=== PATIENT | male | born 1935 | race Caucasian/White ===

== ENCOUNTER 2018-08-30 13:50 | Observation (INO) | payer MEDICARE ==
[~2018-08-30] VITALS: Ht 190.5 cm; Wt 110.5 kg
[~2018-08-30 13:50] MED LIST: BAYER CHEWABLE81 MG PO; BETAPACE 80 MG80 MG PO; BETAPACE160 MG PO; COZAAR50 MG PO; HUMULIN 70100 UNIT/1 SC; HYDROCHLOROTH12.5 M1 PO; KLOR-CON 1010 MEQ PO; LEVAQUIN750 MG PO; SYNTHROID150 MCG PO; TESSALON PERLE100 MG PO; TUMS500 MG PO
[2018-08-30 14:44] LABS: BASOPHILS 0.2 % (0-2); EOSINOPHILS 0.8 % (0-7); HEMATOCRIT 48.1 % (42.0-54.0); HEMOGLOBIN 16.4 g/dL (13.5-17.5); IMMATURE GRANULOCYTES 0.4 % (0-5); LYMPHOCYTES 16.5 % (15-50); MCHC 34.1 g/dL (31.0-37.0); MCV 88.1 fL (80.0-100.0); MEAN PLATELET VOLUME 11.4 fL (7.4-10.4); MONOCYTES 7.9 % (2-11); NEUTROPHILS 74.2 % (40-80); RBC 5.46 10x6/uL (4.20-6.10); RDW 13.2 % (11.5-14.5)
[2018-08-30 14:52] LABS: PLATELET COUNT 171 10x3/uL (130-400)
[2018-08-30 15:06] LABS: ALBUMIN 2.9 g/dL (3.4-5.0); ALKALINE PHOSPHATASE 58 U/L (46-116); ALT (SGPT) 18 U/L (10-68); BILIRUBIN - TOTAL 0.44 mg/dL (0.2-1.3); CALC OSMOLALITY 274 mosm/kg (275-300); CALCIUM 9.2 mg/dL (8.5-10.1); CHLORIDE - SERUM 101 mmol/L (98-107); GLUCOSE 120 mg/dL (74-106); POTASSIUM - SERUM 3.9 mmol/L (3.5-5.1); PROTEIN - SERUM 7.1 g/dL (6.4-8.2); SODIUM 135 mmol/L (136-145); UREA NITROGEN 23 mg/dL (7-18); eGFR NON AFRICAN AMERICAN 76 mL/min (90-120)
[2018-08-30 15:17] LABS: CKMB 1.7 U/L (0.0-3.6); CREATINE KINASE 39 UL (21-232); TROPONIN-I < 0.017 ng/mL (0.000-0.060)
[2018-08-30] MEDS ORDERED: BAYER CHEWABLE81 MG PO (17:36)
[2018-08-30] MEDS ORDERED: COZAAR50 MG PO (17:38)
[2018-08-30] MEDS ORDERED: HYDROCHLOROTH12.5 M1 PO (17:38)
[2018-08-30 17:45] VITALS: BP 125/63
--- NOTE | 2018-08-30 18:32 | NUR ---
LYING QUIETLY. PT DENIES ANY NEEDS. TELEMERTY SHOWS [id number]
[2018-08-30 18:38] VITALS: BMI 22.5
--- NOTE | 2018-08-30 19:15 | NUR ---
RECEIVED REPORT, WILL ASSUME CARE OF PT, PT ASKING ABOUT HIS INSULIN, WILL CALL , PT IS VISITNG WITH FAMILY, BED IS LOW, SRX2, CALL LIGHT IN REACH, WILL CONTINUE PLAN OF CARE
--- NOTE | 2018-08-30 19:33 | NUR ---
SPOKE WITH DR. MARCUS ABOUT BLOODSUGAR 275, WAS TOLD TO ORDER INTERMEDATE SLICING SCALE, WAS ALSO TOLD TO ORDER 70/30
[2018-08-30 20:00] VITALS: BP 100/40
[2018-08-31] VITALS (7 sets, daily range): BP systolic 107–131; BP diastolic 55–64; Ht 190.5 cm; Wt 110.5 kg
--- NOTE | 2018-08-31 03:32 | NUR ---
I have reviewed this patient and I concur with the Shift Assessment completed by the Licensed Practical Nurse today this shift.
[2018-08-31 04:43] LABS: BASOPHILS 0.2 % (0-2); EOSINOPHILS 1.3 % (0-7); HEMOGLOBIN 15.2 g/dL (13.5-17.5); IMMATURE GRANULOCYTES 0.3 % (0-5); LYMPHOCYTES 29.7 % (15-50); MCH 29.9 pg (26.0-34.0); MCHC 33.8 g/dL (31.0-37.0); MCV 88.6 fL (80.0-100.0); MEAN PLATELET VOLUME 11.9 fL (7.4-10.4); MONOCYTES 10.5 % (2-11); PLATELET COUNT 182 10x3/uL (130-400); RBC 5.08 10x6/uL (4.20-6.10); RDW 13.2 % (11.5-14.5)
[2018-08-31 04:49] LABS: WBC 8.9 10x3/uL (4.8-10.8)
[2018-08-31 05:08] LABS: CALC OSMOLALITY 281 mosm/kg (275-300); CALCIUM 8.8 mg/dL (8.5-10.1); CARBON DIOXIDE 32.3 mmol/L (21.0-32.0); CHLORIDE - SERUM 103 mmol/L (98-107); CREATININE - SERUM 0.9 mg/dL (0.6-1.3); GLUCOSE 121 mg/dL (74-106); POTASSIUM - SERUM 3.7 mmol/L (3.5-5.1); SODIUM 139 mmol/L (136-145); THYROID STIMULATING HORMONE 1.02 uIU/mL (0.36-3.74); UREA NITROGEN 22 mg/dL (7-18); eGFR NON AFRICAN AMERICAN 86 mL/min (90-120)
--- NOTE | 2018-08-31 07:00 | NUR ---
RECEIVED REPORT. ASSUMED CARE OF PATIENT. PATIENT WITH EYES OPEN. CALL LIGHT WITHIN REACH. NO DISTRESS. DENIES NEEDS. PATIENT AT BEDSIDE.
--- NOTE | 2018-08-31 08:58 | NUR ---
FSBS 100. 60 UNITS NPH ADMINISTERED ORDERED AFTER PATIENT ATE AM MEAL.
--- NOTE | 2018-08-31 09:54 | NUR ---
ORAL CARDIZEM AND XARELTO INITIATED AT THIS TIME.
--- NOTE | 2018-08-31 12:27 | NUR ---
FSBS 224. REFUSED INSULIN. PATIENT STATES HE DOESNT TAKE SLIDING SCALE INSULIN AT HOME. HAVING NOON MEAL. NO DISTRESS. IV CARDIZEM DRIP IS OFF AT THIS TIME PER ORDER FROM .
--- NOTE | 2018-08-31 16:51 | NUR ---
FSBS 210. PATIENT REFUSED SHORT ACTING INSULIN PER SLIDING SCALE AT THIS TIME.
--- NOTE | 2018-08-31 19:31 | NUR ---
RECEIVED REPORT, WILL ASSUME CARE OF PT, ASKING WHAT MEDS HE IS TAKEN, PULLED UP EMAR AND WENT OVER EACH MED, DENIES ANY OTHER NEEDS AT THIS TIME, SR-60 ON TELEMTRY, BED IS LOW, SRX2, CALL LIGHT IN REACH, AT BEDSIDE, WILL CONTINUE PLAN OF CARE
--- NOTE | 2018-09-01 02:08 | NUR ---
REQUESTING BS TO BE CHECKED-44, HE HAD EATEN A CANDY BAR, I GAVE ORANGE JUICE, WILL RECHECK
[2018-09-01 04:30] VITALS: BP 110/56
[2018-09-01 04:41] LABS: BASOPHILS 0.2 % (0-2); EOSINOPHILS 1.9 % (0-7); HEMATOCRIT 42.5 % (42.0-54.0); HEMOGLOBIN 14.2 g/dL (13.5-17.5); IMMATURE GRANULOCYTES 0.5 % (0-5); LYMPHOCYTES 20.3 % (15-50); MCH 29.8 pg (26.0-34.0); MCHC 33.4 g/dL (31.0-37.0); MCV 89.1 fL (80.0-100.0); MEAN PLATELET VOLUME 11.9 fL (7.4-10.4); NEUTROPHILS 68.1 % (40-80); PLATELET COUNT 175 10x3/uL (130-400); RBC 4.77 10x6/uL (4.20-6.10); WBC 10.1 10x3/uL (4.8-10.8)
[2018-09-01 05:07] LABS: CALC OSMOLALITY 277 mosm/kg (275-300); CALCIUM 8.7 mg/dL (8.5-10.1); CARBON DIOXIDE 31.1 mmol/L (21.0-32.0); CHLORIDE - SERUM 103 mmol/L (98-107); GLUCOSE 110 mg/dL (74-106); POTASSIUM - SERUM 3.8 mmol/L (3.5-5.1); SODIUM 137 mmol/L (136-145); UREA NITROGEN 22 mg/dL (7-18); eGFR NON AFRICAN AMERICAN 76 mL/min (90-120)
[2018-09-01 07:56] VITALS: BP 129/64
[2018-09-01] MEDS ORDERED: XARELTO15 MG PO (10:18)
[2018-09-01] MEDS ORDERED: CARDIZEM60 MG PO (10:18)
[2018-09-01] MEDS ORDERED: PROTONIX40 MG PO (10:19)
--- NOTE | 2018-09-01 11:15 | NUR ---
PT DC'D HOME. IV REMOVED FROM LEFT UPPER ARM WITH CATHETER TIP IN PLACE. DISCHARGE INSTRUCTION GIVEN. VITALS STABLE NO S/S OF DISTRESS. PT DENIES ANY NEEDS OR PAIN AT THIS TIME. BED LOW CALL LIGHT WITHIN REACH. WILL CONTINUE TO MONITOR.
--- NOTE | 2018-09-02 09:13 | MORECARE ---
CASE MANAGEMENT DISCHARGE SUMMARY PATIENT: BRADLEY JAIVER JR UNIT: [id number] ADM DATE: 08/30/18 AGE: 83 : 37 SEX: M ROOM/BED: D.[facility] AUTHOR: KAMLESH STUART PHYSICIAN: REFERRING PHYSICIAN: FRANCIS MARCUS MD DATE OF SERVICE: 09/02/18 Discharge Plan Patient Name: BRADLEY JAVIER Facility: [facility]:[place] : 1935 Planned Disposition: Home Anticipated Discharge Date: 09/01/18 Discharge Date: 09/01/2018 Expected LOS: 2 Initial Reviewer: [email or web address] Initial Review Date: 09/02/2018 Generated: 09/02/18 10:13 am Coverage Notice Reviewer: [email or web address] Andres Jeffries Notice Issued Date-Time: 08/31/2018 12:01 Notice Type: Medicare Outpatient Observation Notice Notice Delivered To: Patient Relationship to 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
== END 2018-09-01 12:37 | disposition home or self-care (01) ==
LOC: D.ER 13:50 → D.M2 15:52 → D.EDHOLD 15:52 → OBSVTIME 15:53 → D.M2 15:55
PROVIDERS: Family Medicine; ADMIT Internal Medicine Nephrology; ATTEND Internal Medicine Nephrology
DX: I48.0 Paroxysmal atrial fibrillation (principal); E11.9 Type 2 diabetes mellitus without complications; I10 Essential (primary) hypertension; J44.9 Chronic obstructive pulmonary disease, unspecified; N17.9 Acute kidney failure, unspecified; E87.1 Hypo-osmolality and hyponatremia; E03.9 Hypothyroidism, unspecified

== ENCOUNTER → 2019-04-29 08:55 | Outpatient (CLI) | payer MEDICARE ==
[2018-08-31 11:13] VITALS: BMI 22.5
[~2019-04-29 08:55] MED LIST changes: +CARDIZEM60 MG PO; +PROTONIX40 MG PO; +XARELTO15 MG PO
== END | disposition home or self-care (01) ==
LOC: D.HCCECHO 08:55
PROVIDERS: ATTEND Internal Medicine Cardiovascular Disease
DX: I10 Essential (primary) hypertension (principal)

== ENCOUNTER 2019-09-11 13:25 | Inpatient (IN) | payer MEDICARE ==
[~2019-09-11] VITALS: Ht 190.5 cm; Wt 111.1 kg
[2019-09-11 13:54] VITALS: BP 187/85
[2019-09-11 14:01] LABS: BASOPHILS 0.2 % (0-2); EOSINOPHILS 0.8 % (0-7); HEMATOCRIT 50.1 % (42.0-54.0); HEMOGLOBIN 16.5 g/dL (13.5-17.5); IMMATURE GRANULOCYTES 0.5 % (0-5); MCH 30.2 pg (26.0-34.0); MCHC 32.9 g/dL (31.0-37.0); MCV 91.6 fL (80.0-100.0); MEAN PLATELET VOLUME 10.6 fL (7.4-10.4); MONOCYTES 7.1 % (2-11); NEUTROPHILS 77.4 % (40-80); RBC 5.47 10x6/uL (4.20-6.10); RDW 13.6 % (11.5-14.5); WBC 15.6 10x3/uL (4.8-10.8)
[2019-09-11 14:02] LABS: CALC OSMOLALITY 251 mosm/kg (275-300); CALCIUM 9.8 mg/dL (8.5-10.1); CARBON DIOXIDE 36.5 mmol/L (21.0-32.0); CHLORIDE - SERUM 90 mmol/L (98-107); CREATININE - SERUM 0.9 mg/dL (0.6-1.3); POTASSIUM - SERUM 4.4 mmol/L (3.5-5.1); SODIUM 125 mmol/L (136-145); UREA NITROGEN 19 mg/dL (7-18); eGFR NON AFRICAN AMERICAN 86 mL/min (90-120)
[2019-09-11 14:04] LABS: GLUCOSE 60 mg/dL (74-106)
[2019-09-11 14:06] LABS: APTT 54.7 SECONDS (22.8-39.4); PROTIME 20.7 SECONDS (11.6-15.0)
[2019-09-11 14:07] LABS: D-DIMER-QUANTITATIVE < 0.27 ug/mLFEU (0.20-0.54); PLATELET COUNT 212 10x3/uL (130-400)
[2019-09-11 14:20] LABS: ALBUMIN 3.2 g/dL (3.4-5.0); ALKALINE PHOSPHATASE 85 U/L (30-120); ALT (SGPT) 13 U/L (10-68); BILIRUBIN - TOTAL 0.69 mg/dL (0.2-1.3); CKMB 3.7 U/L (0.0-3.6); CREATINE KINASE 52 UL (21-232); MAGNESIUM - SERUM 1.9 mg/dL (1.8-2.4); PRO BNP 361 pg/mL (0-450); PROTEIN - SERUM 8.6 g/dL (6.4-8.2); TROPONIN-I < 0.017 ng/mL (0.000-0.060)
[2019-09-11 15:02] LABS: C-REACTIVE PROTEIN 2.6 mg/dL (0.0-0.9)
--- NOTE | 2019-09-11 15:12 | NUR ---
ABG'S PERFORMED PER RT, BS= 48 MG/DL. PT A/OX3. TALKATIVE. OJ GIVEN AND PT CONSUMED WITHOUT PBMS. D50 (1/2 AMP) ADMINPER ORDERS
[2019-09-11 15:23] VITALS: BP 149/88
[2019-09-11] MEDS ORDERED: AVAPRO75 MG PO (15:29)
[2019-09-11] MEDS ORDERED: MELATONIN10 M1 PO (15:30)
[2019-09-11] MEDS ORDERED: VALTREX1000 MG PO (15:31)
--- NOTE | 2019-09-11 16:01 | NUR ---
FSBS= 109 MG/DL
--- NOTE | 2019-09-11 16:12 | NUR ---
REPORT TO EN ALVARENGA
[2019-09-11 16:30] VITALS: BP 136/84
--- NOTE | 2019-09-11 16:35 | NUR ---
ADMITTED TO ROOM # 2130, CONDITION STABLE. LEVAQUIN 750 MG INFUSING @ 100 ML/HR
--- NOTE | 2019-09-11 16:48 | NUR ---
PT TO ROOM FROM ER VIA CART. COVID PUI. ISOLATION. VITAL STABLE. LEVAQUIN INFUSING ON ARRIVAL.
[2019-09-11 16:54] VITALS: BP 149/62
[2019-09-11 19:33] VITALS: BP 149/62; BMI 30.6
[2019-09-11 19:38] LABS: BILIRUBIN NEGATIVE (NEGATIVE); GLUCOSE NEGATIVE (NEGATIVE); KETONE NEGATIVE (NEGATIVE); NITRITE NEGATIVE (NEGATIVE); UROBILINOGEN NORMAL (NORMAL)
--- NOTE | 2019-09-11 19:43 | NUR ---
[facility] WITH INFECTION CONTROL CALLED AND NOTIFIED CHARGE NURSE THAT PT IS COVID-19 NEGATIVE. PT IS TO BE MOVED TO A REGULAR ROOM.
[2019-09-11 19:47] LABS: BACTERIA FEW /hpf (NEGATIVE); EPITHELIAL CELLS NSEEN /hpf (0-5); RED CELLS - URINE 0-5 /hpf (0-5); WHITE CELLS - URINE 0-5 /hpf (NEGATIVE)
[2019-09-11 20:00] VITALS: BP 128/50
[2019-09-12] VITALS: BP 106/57
--- NOTE | 2019-09-12 03:14 | NUR ---
PT PIV TO L HAND WAS RIPPED OUT BY PT WHEN HE STOOD TO USE THE URINAL. OLD CATH TIP STILL INTACT. NEW 20G PIV STARTED X1 ATTEMPT IN R FOREARM. NS @100 ML/HR STARTED IN NEW PIV. PT TOLERATED WELL. CL IN REACH, BED IN LOWEST POSITION.
[2019-09-12 04:00] VITALS: BP 131/60
[2019-09-12 08:04] VITALS: BP 127/67; BP 130/56
[2019-09-12 09:11] LABS: BASOPHILS 0.1 % (0-2); EOSINOPHILS 0.4 % (0-7); HEMATOCRIT 45.9 % (42.0-54.0); IMMATURE GRANULOCYTES 0.4 % (0-5); LYMPHOCYTES 12.3 % (15-50); MCH 30.2 pg (26.0-34.0); MCHC 32.7 g/dL (31.0-37.0); MCV 92.5 fL (80.0-100.0); MEAN PLATELET VOLUME 10.8 fL (7.4-10.4); MONOCYTES 6.6 % (2-11); NEUTROPHILS 80.2 % (40-80); RBC 4.96 10x6/uL (4.20-6.10); RDW 13.9 % (11.5-14.5); WBC 13.7 10x3/uL (4.8-10.8)
[2019-09-12 09:29] LABS: CALC OSMOLALITY 262 mosm/kg (275-300); CALCIUM 9.1 mg/dL (8.5-10.1); CARBON DIOXIDE 38.3 mmol/L (21.0-32.0); CHLORIDE - SERUM 92 mmol/L (98-107); CREATININE - SERUM 0.9 mg/dL (0.6-1.3); MAGNESIUM - SERUM 1.8 mg/dL (1.8-2.4); PHOSPHOROUS 3.6 mg/dL (2.5-4.9); PLATELET COUNT 165 10x3/uL (130-400); POTASSIUM - SERUM 4.8 mmol/L (3.5-5.1); SODIUM 127 mmol/L (136-145); THYROID STIMULATING HORMONE 4.22 uIU/mL (0.36-3.74); UREA NITROGEN 20 mg/dL (7-18); eGFR NON AFRICAN AMERICAN 86 mL/min (90-120)
[2019-09-12 09:31] LABS: GLUCOSE 188 mg/dL (74-106)
[2019-09-12 12:49] VITALS: BP 114/69
[2019-09-12 13:20] VITALS: Ht 190.5 cm; Wt 111.1 kg
[2019-09-12 17:03] VITALS: BP 115/56
--- NOTE | 2019-09-12 19:20 | NUR ---
BEDSIDE REPORT RECEIVED, PT CARE ASSUMED. INTRODUCED SELF AND WROTE NAME ON BOARD. PT SITTING UP IN BED, WATCHING TV, AAOX4. DENIES ANY NEEDS AT THIS TIME. BED IN LOWEST, SRX2, CALL LIGHT AND URINAL WITHIN REACH. WILL CTM.
[2019-09-12 20:30] VITALS: BP 136/58
[2019-09-13 00:30] VITALS: BP 98/47
[2019-09-13 04:30] VITALS: BP 130/52
[2019-09-13 05:27] LABS: BASOPHILS 0.2 % (0-2); EOSINOPHILS 1.1 % (0-7); HEMATOCRIT 44.3 % (42.0-54.0); IMMATURE GRANULOCYTES 1.1 % (0-5); LYMPHOCYTES 11.8 % (15-50); MCH 29.8 pg (26.0-34.0); MCHC 31.6 g/dL (31.0-37.0); MCV 94.3 fL (80.0-100.0); MEAN PLATELET VOLUME 11.4 fL (7.4-10.4); NEUTROPHILS 76.8 % (40-80); RDW 13.7 % (11.5-14.5); WBC 12.7 10x3/uL (4.8-10.8)
[2019-09-13 05:49] LABS: CALCIUM 8.9 mg/dL (8.5-10.1); CARBON DIOXIDE 35.4 mmol/L (21.0-32.0); CREATININE - SERUM 1.1 mg/dL (0.6-1.3); MAGNESIUM - SERUM 1.7 mg/dL (1.8-2.4); PHOSPHOROUS 3.3 mg/dL (2.5-4.9); POTASSIUM - SERUM 5.4 mmol/L (3.5-5.1)
[2019-09-13 05:56] LABS: PLATELET COUNT 210 10x3/uL (130-400)
--- NOTE | 2019-09-13 07:30 | NUR ---
PT SITTING UP IN BED, RR EVEN AND SLIGHTLY LABORED ON 4L NC. NC WAS SITTING ON PT NOSE. REPOSITIONED TO CORRECT PLACEMENT. READJUSTED PILLOW TO COMFORT PER REQUEST. CALL LIGHT WITHIN REACH. BED IN LOWEST POSITION. WILL CONTINUE TO MONITOR.
[2019-09-13 08:29] VITALS: BP 145/59
[2019-09-13 13:56] VITALS: BP 141/59
--- NOTE | 2019-09-13 13:57 | NUR ---
I have reviewed this patient and I concur with the Shift Assessment completed by the Licensed Practical Nurse today this shift.
[2019-09-13 18:25] VITALS: BP 157/62
--- NOTE | 2019-09-13 19:00 | NUR ---
BEDSIDE REPORT RECEIVED, PT CARE ASSUMED. PT SITTING ON SIDE OF BEDSIDE, REQUESTING NEW GOWN, PROVIDED. DENIES ANY OTHER NEEDS AT THIS TIME. BED IN LOWEST, SRX1, CALL LIGHT, URINAL, AND CELLPHONE WITHIN REACH. WILL CTM.
[2019-09-13 20:30] VITALS: BP 149/65
[2019-09-14 00:30] VITALS: BP 96/48
[2019-09-14 06:10] LABS: BASOPHILS 0.2 % (0-2); EOSINOPHILS 0.6 % (0-7); HEMATOCRIT 42.5 % (42.0-54.0); HEMOGLOBIN 13.5 g/dL (13.5-17.5); IMMATURE GRANULOCYTES 0.9 % (0-5); LYMPHOCYTES 13.1 % (15-50); MCH 29.6 pg (26.0-34.0); MCHC 31.8 g/dL (31.0-37.0); MCV 93.2 fL (80.0-100.0); MEAN PLATELET VOLUME 11.4 fL (7.4-10.4); MONOCYTES 10.7 % (2-11); NEUTROPHILS 74.5 % (40-80); PLATELET COUNT 223 10x3/uL (130-400); RBC 4.56 10x6/uL (4.20-6.10); RDW 13.7 % (11.5-14.5); WBC 11.3 10x3/uL (4.8-10.8)
[2019-09-14 06:56] LABS: ANION GAP 5.6 mmol/L (8-16); CALCIUM 9.2 mg/dL (8.5-10.1); CARBON DIOXIDE 36.9 mmol/L (21.0-32.0); CREATININE - SERUM 1.2 mg/dL (0.6-1.3); MAGNESIUM - SERUM 1.9 mg/dL (1.8-2.4); PHOSPHOROUS 3.2 mg/dL (2.5-4.9)
[2019-09-14 06:57] LABS: POTASSIUM - SERUM 4.5 mmol/L (3.5-5.1)
--- NOTE | 2019-09-14 07:41 | NUR ---
PT SITTING UP IN BED, RR EVEN AND UNLABORED ON 3L NC. DENIES NEEDS OR PAIN AT THIS TIME. CALL LIGHT WITHIN REACH. BED IN LOWEST POSITION. AT BEDSIDE. WILL CONTINUE TO MONITOR.
[2019-09-14 08:48] VITALS: BP 114/54
--- NOTE | 2019-09-14 09:56 | EC ---
PATIENT:BRADLEY JAVIER JR DATE OF SERVICE: 09/11/19 SEX: M MEDICAL RECORD: [id number] DATE OF : 39 LOCATION:D. D.213 AGE OF PATIENT: 84 ADMISSION DATE: 09/11/19 REFERRING PHYSICIAN: INTERPRETING PHYSICIAN: DEANGELO PEPE MD ECHOCARDIOGRAM REPORT ECHO CHARGES 4 ECHO COMPLETE Date: 09/12/19 CLINICAL DIAGNOSIS: BILATERAL LEG SWELLING, SOB, HX:AFIB ECHOCARDIOGRAPHIC MEASUREMENTS (adult normal given) AC root (d.<3.7cm) 2.9 cm LV Septum d (<1.2 cm> 1.3 cm Valve Excursion 1.6 cm LV Septum (systole) 1.4 cm Left Atria (s.<4.0cm> 3.6 cm LVPW d(<1.2cm) 1.2 cm RV (d.<2.3cm) 2.8 cm LVPW (sytole) 1.3 cm LV diastole(<5.6CM) 3.5 cm MV E-F(>70mm/sec) cm LV systole 3.0 cm LVOT Diameter 2.0 cm MV exc.(>10mm) cm Est.ejection fraction (50-75%) % DOPPLER: LVIT cm/sec A 54 cm/sec E 82 cm/sec LA cm/sec RVSP 14.8 mmHg LVOT 99 cm/sec AOP1/2T m/s Asc. 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 Peralta TAPE# PACS Pericardial Effusion N DATE OF SERVICE: PROCEDURE: Echocardiogram. INDICATION: Left ventricle shows normal size and function. The patient has mild left ventricular hypertrophy, which is concentric. FINDINGS: Left atrium is normal size and function. The aortic valve is structurally normal. ECHOCARDIOGRAM REPORT [id number] BRADLEY JAVIER JR Mitral valve is structurally normal. No significant regurgitation or stenosis seen. Tricuspid valve is normal structure and function. Normal right ventricular systolic pressures. Right atrium, mildly enlarged. The pulmonic valve is normal. No evidence of pericardial effusion. TRANSINT:[id number] Voice Confirmation ID: [id number] DOCUMENT ID: [id number] DEANGELO PEPE MD at 0956 CC: [id number] DICTATION DATE: 09/13/19 [address] DRIVER: 09/13/19 1456 ADM IN [facility] [address] [place] [address]
--- NOTE | 2019-09-14 11:44 | NUR ---
I have reviewed this patient and I concur with the Shift Assessment completed by the Licensed Practical Nurse today this shift.
[2019-09-14 12:59] VITALS: BP 98/51
[2019-09-14] MEDS ORDERED: LEVOFLOXAC750 MG/150 PO (17:18)
[2019-09-14] MEDS ORDERED: SYNTHROID150 MCG PO (17:20)
[2019-09-14] MEDS ORDERED: LEVAQUIN750 MG PO (17:34)
[2019-09-14 18:04] VITALS: BP 149/76
--- NOTE | 2019-09-14 18:46 | NUR ---
PT ESCORTED OUT VIA WHEELCHAIR TO POV, FAMILY DRIVING.
== END 2019-09-14 18:46 | disposition home or self-care (01) | DRG 193 ==
LOC: D.ER 13:25 → D.M2 15:24
PROVIDERS: Family Medicine; ADMIT Internal Medicine Nephrology; ATTEND Internal Medicine Nephrology
DX: J12.9 Viral pneumonia, unspecified (principal); J96.22 Acute and chronic respiratory failure with hypercapnia; E87.1 Hypo-osmolality and hyponatremia; E11.649 Type 2 diabetes mellitus with hypoglycemia without coma; I10 Essential (primary) hypertension; E03.9 Hypothyroidism, unspecified; N40.0 Benign prostatic hyperplasia without lower urinary tract symptoms; M19.90 Unspecified osteoarthritis, unspecified site